=== PATIENT | male | born 1955 | race Hispanic/Latino ===

== ENCOUNTER 2017-03-11 20:08 | Inpatient (IN) | payer MEDICARE ==
[2017-03-11] MEDS ORDERED: MORPHINE IV ONE (20:36)
[2017-03-11 20:57] LABS: Basophils % (Auto) 0.4 % (0.0-1.8); Eosinophils % (Auto) 1.8 % (0.0-4.3); Hemoglobin 13.9 gm/dl (11.8-15.2); Mean Corpuscular HGB Conc 33 % (32-34); Mean Corpuscular Hemoglobin 29 pg (28-32); Mean Corpuscular Volume 88 fl (84-94); Platelet Count 111 K/mm3 (140-440); Red Blood Count 4.76 M/mm3 (3.65-5.03); Red Cell Distribution Width 16.8 % (13.2-15.2); White Blood Count 6.6 K/mm3 (4.5-11.0)
[2017-03-11 21:20] LABS: Alanine Aminotransferase 39 units/L (7-56); Albumin 4.2 g/dL (3.9-5); Albumin/Globulin Ratio 1.4 %; Alkaline Phosphatase 74 units/L (35-129); Anion Gap 19 mmol/L; BUN/Creatinine Ratio 21.42; Blood Urea Nitrogen 15 mg/dL (9-20); Calcium 8.6 mg/dL (8.4-10.2); Carbon Dioxide 21 mmol/L (22-30); Chloride 101.3 mmol/L (98-107); Glucose 119 mg/dL (75-100); Potassium 4.1 mmol/L (3.6-5.0); Sodium 137 mmol/L (137-145); Total Protein 7.1 g/dL (6.3-8.2)
--- NOTE | 2017-03-11 21:24 | Emergency Department Report ---
ED Chest Pain HPI - General Chief Complaint: Chest Pain Stated Complaint: POSS STEMI Time Seen by Provider: 03/11/17 20:12 Source: patient, family, EMS Mode of arrival: Stretcher Limitations: No Limitations - History of Present Illness Initial Comments: Patient is a 61-year-old male who presents with severe chest pain. Chest pain started 45 minutes ago. He states the pain is a 10 out of 10 located in the left side of his chest. He has a sharp pain that radiates to his left shoulder. He states that nothing makes it better and nothing makes the pain worse. Patient has a history of PR and high blood pressure he states he was at rest doing his activities of daily living one this severe chest pain started. He states this chest pain is similar to the chest pain he had when he had a heart attack. Patient is also short of breath symptoms are moderate. Severity scale (0 -10): 10 - Related Data Home Medications Medication Instructions Recorded Confirmed Last Taken Aspirin 81 mg PO QDAY 03/11/17 03/11/17 03/11/17 HYDROcodone/ACETAMINOPHEN [Xodol 1 each PO TID 03/11/17 03/11/17 03/11/17 5-300 Tablet] Metoprolol Tartrate 25 mg PO BID 03/11/17 03/11/17 03/11/17 Pantoprazole Sodium 40 mg PO QDAY 03/11/17 03/11/17 03/11/17 Previous Rx's Medication Instructions Recorded Last Taken Type Ezetimibe [Zetia] 10 mg PO QDAY #30 tablet 10/29/16 03/11/17 Rx Allergies Allergy/AdvReac Type Severity Reaction Status Date / Time albuterol AdvReac Unknown Verified 10/25/16 21:32 Heart Score - HEART Score History: Moderately suspicious EKG: Non-specific Age: 45-65 Risk factors: > 3 risk factors or hx of atherosclerotic disease Troponin: < normal limit HEART Score: 5 ED Review of Systems ROS: Stated complaint: POSS STEMI Other details as noted in HPI Constitutional: denies: chills, fever Eyes: denies: eye pain, eye discharge, vision change ENT: denies: ear pain, throat pain Respiratory: shortness of breath. denies: cough, wheezing Cardiovascular: chest pain. denies: palpitations Endocrine: no symptoms reported Gastrointestinal: denies: abdominal pain, nausea, diarrhea Genitourinary: denies: urgency, dysuria Musculoskeletal: denies: back pain, joint swelling, arthralgia Skin: denies: rash, lesions Neurological: denies: headache, weakness, paresthesias Psychiatric: denies: anxiety, depression Hematological/Lymphatic: denies: easy bleeding, easy bruising ED Past Medical Hx - Past Medical History Hx Hypertension: Yes Hx Heart Attack/AMI: Yes Hx Asthma: Yes - Surgical History Hx Coronary Stent: Yes (x 3) Additional Surgical History: ORIF left femur, skin grafts to bilateral feet - Social History Smoking Status: Never Smoker Substance Use Type: Marijuana - Medications Home Medications: Home Medications Medication Instructions Recorded Confirmed Last Taken Type Ezetimibe [Zetia] 10 mg PO QDAY #30 tablet 10/29/16 03/11/17 03/11/17 Rx Aspirin 81 mg PO QDAY 03/11/17 03/11/17 03/11/17 History HYDROcodone/ACETAMINOPHEN [Xodol 1 each PO TID 03/11/17 03/11/17 03/11/17 History 5-300 Tablet] Metoprolol Tartrate 25 mg PO BID 03/11/17 03/11/17 03/11/17 History Pantoprazole Sodium 40 mg PO QDAY 03/11/17 03/11/17 03/11/17 History ED Physical Exam - General Limitations: No Limitations General appearance: in distress - Head Head exam: Present: atraumatic, normocephalic - Eye Eye exam: Present: normal appearance - ENT ENT exam: Present: mucous membranes moist - Neck Neck exam: Present: normal inspection - Respiratory Respiratory exam: Present: normal lung sounds bilaterally. Absent: respiratory distress - Cardiovascular Cardiovascular Exam: Present: regular rate, normal rhythm. Absent: systolic murmur, diastolic murmur, rubs, gallop - GI/Abdominal GI/Abdominal exam: Present: soft, normal bowel sounds - Rectal Rectal exam: Present: deferred - Extremities Exam Extremities exam: Present: normal inspection - Back Exam Back exam: Present: normal inspection - Neurological Exam Neurological exam: Present: alert, oriented X3, CN II-XII intact - Psychiatric Psychiatric exam: Present: normal affect, normal mood - Skin Skin exam: Present: warm, dry, intact, normal color. Absent: rash ED Course Vital Signs 03/11/17 03/11/17 03/11/17 20:00 20:10 20:18 Temperature 98.3 F Pulse Rate 107 H 81 87 Respiratory 21 15 16 Rate Blood Pressure 205/140 163/102 Blood Pressure 163/102 [Right] O2 Sat by Pulse 100 100 Oximetry 03/11/17 03/11/17 03/11/17 20:21 20:31 20:41 Temperature Pulse Rate 85 90 71 Respiratory 17 23 16 Rate Blood Pressure 176/106 176/106 Blood Pressure [Right] O2 Sat by Pulse 99 96 99 Oximetry 03/11/17 03/11/17 03/11/17 20:51 21:00 21:07 Temperature Pulse Rate 72 68 Respiratory 25 H 15 Rate Blood Pressure 131/82 135/82 Blood Pressure [Right] O2 Sat by Pulse 98 95 100 Oximetry 03/11/17 03/11/17 03/11/17 21:11 21:21 21:30 Temperature Pulse Rate 70 67 Respiratory 13 14 Rate Blood Pressure 135/82 130/85 148/85 Blood Pressure [Right] O2 Sat by Pulse 98 97 Oximetry 03/11/17 03/11/17 03/11/17 21:50 22:00 22:10 Temperature Pulse Rate 103 H 85 84 Respiratory 24 17 17 Rate Blood Pressure 148/85 148/85 Blood Pressure [Right] O2 Sat by Pulse 98 98 98 Oximetry 03/11/17 03/11/17 03/11/17 22:20 22:30 22:40 Temperature Pulse Rate 82 84 110 H Respiratory 15 13 28 H Rate Blood Pressure 148/85 148/85 148/85 Blood Pressure [Right] O2 Sat by Pulse 96 97 96 Oximetry 03/11/17 03/11/17 03/11/17 22:50 23:00 23:10 Temperature Pulse Rate 93 H 93 H 94 H Respiratory 15 10 L 12 Rate Blood Pressure 148/85 148/85 148/85 Blood Pressure [Right] O2 Sat by Pulse 97 96 97 Oximetry 03/11/17 03/11/17 23:20 23:30 Temperature Pulse Rate 84 87 Respiratory 13 14 Rate Blood Pressure 148/85 148/85 Blood Pressure [Right] O2 Sat by Pulse 97 97 Oximetry - Reevaluation(s) Reevaluation #1: 03/11/17 21:25 Patient states that his pain is better. Discussed that I will admit patient to the hospital he agrees with the plan. Reevaluation #2: 03/12/17 00:11 patient is felling better i will admit patient case discussed with hospitalist BRANDO score - Brando Score Age > 65: (0) No Aspirin use within the Past 7 Days: (0) No 3 or more CAD Risk Factors: (1) Yes 2 or more Angina events in past 24 hrs: (1) Yes Known CAD with more than 50% Stenosis: (1) Yes Elevated Cardiac Markers: (0) No ST Deviation Greater than 0.5mm: (0) No BRANDO Score: 3 ED Medical Decision Making - Lab Data Result diagrams: 03/11/17 20:41 03/11/17 20:41 Lab Results 03/11/17 03/11/17 03/11/17 Range/Units 20:41 20:41 20:41 WBC 6.6 (4.5-11.0) K/mm3 RBC 4.76 (3.65-5.03) M/mm3 Hgb 13.9 (11.8-15.2) gm/dl Hct 42.0 (35.5-45.6) % MCV 88 (84-94) fl MCH 29 (28-32) pg MCHC 33 (32-34) % RDW 16.8 H (13.2-15.2) % Plt Count 111 L (140-440) K/mm3 Lymph % (Auto) 26.5 (13.4-35.0) % [place] % (Auto) 9.7 H (0.0-7.3) % Eos % (Auto) 1.8 (0.0-4.3) % Baso % (Auto) 0.4 (0.0-1.8) % Lymph # 1.7 (1.2-5.4) K/mm3 [place] # 0.6 (0.0-0.8) K/mm3 Eos # 0.1 (0.0-0.4) K/mm3 Baso # 0.0 (0.0-0.1) K/mm3 Seg Neutrophils % 61.6 (40.0-70.0) % Seg Neutrophils # 4.0 (1.8-7.7) K/mm3 Sodium 137 (137-145) mmol/L Potassium 4.1 (3.6-5.0) mmol/L Chloride 101.3 (98-107) mmol/L Carbon Dioxide 21 L (22-30) mmol/L Anion Gap 19 mmol/L BUN 15 (9-20) mg/dL Creatinine 0.7 L (0.8-1.5) mg/dL Estimated GFR > 60 ml/min BUN/Creatinine Ratio 21.42 % Glucose 119 H (75-100) mg/dL Calcium 8.6 (8.4-10.2) mg/dL Total Bilirubin 0.30 (0.1-1.2) mg/dL AST 30 (5-40) units/L ALT 39 (7-56) units/L Alkaline Phosphatase 74 (35-129) units/L Troponin T < 0.010 (0.00-0.029) ng/mL NT-Pro-B Natriuret Pep 112.3 (0-900) pg/mL Total Protein 7.1 (6.3-8.2) g/dL Albumin 4.2 (3.9-5) g/dL Albumin/Globulin Ratio 1.4 % - EKG Data -: EKG Interpreted by Sc - EKG Data 03/11/17 21:26 EKG shows normal sinus rhythm nonspecific ST and T-wave abnormality and prolonged QT. - Radiology Data Radiology results: report reviewed, image reviewed Chest x-ray shows: Cardiomegaly CT angio chest: Shows no dissection CT angio abdomen pelvis: shows no dissection - Medical Decision Making Chief medical diagnosis: Non-STEMI Differential medical diagnosis: Aortic dissection, unstable angina, pneumonia and pneumothorax CBC, CMP, troponin, chest x-ray, IV morphine, CT angiogram chest Due to patient's severe symptoms he will be admitted. Critical care attestation.: If time is entered above; I have spent that time in minutes in the direct care of this critically ill patient, excluding procedure time. ED Disposition Clinical Impression: Chest pain Qualifiers: Chest pain type: unspecified Qualified Code(s): R07.9 - Chest pain, unspecified Disposition: -09 OP ADMIT IP TO THIS HOSP Is pt being admited?: Yes Does the pt Need Aspirin: No Condition: Stable Instructions: Chest Pain (ED) Referrals: PRIMARY CARE, [Referring] - 3-5 Days
[2017-03-11] MEDS ORDERED: NACL ONE (21:34)
[2017-03-11] MEDS ORDERED: DILAUDID IV ONE (21:58)
[2017-03-11] MEDS ORDERED: ZOFRAN ONE (22:41)
[2017-03-11] MEDS ORDERED: ZOFRAN IV ONE (22:44)
--- NOTE | 2017-03-11 22:52 | Cat Scan Report ---
FINAL REPORT EXAM: CT ANGIO ABDOMEN PELVIS HISTORY: concern for dissection TECHNIQUE: Standard enhanced CT of the abdomen and pelvis. Coronal and sagittal reconstruction was also performed. Contrast: 100 mL Omnipaque 350 given IV. PRIORS: CT a/P 10/26/2016 FINDINGS: The aorta is normal in caliber without evidence for dissection or aneurysm. Mild atherosclerotic changes in calcification are present in the distal abdominal aorta. Within the abdomen, the liver has a lobulated contour suggesting cirrhosis. There is elevation of the right hemidiaphragm. The spleen, pancreas, gallbladder, adrenal glands, and kidneys are unremarkable. No evidence for retroperitoneal or pelvic lymphadenopathy is seen. The bowel loops have normal caliber. No soft tissue mass, fluid collection, inflammatory change, or free air is seen within the abdomen or pelvis. The appendix is normal. Within the pelvis, the bladder is unremarkable. The prostate is normal. No evidence for mass or lymphadenopathy is seen in the pelvis. Bony structures show intramedullary marky in the proximal left femur. A metallic focus is also seen in the overlying lateral soft tissues of the left hip. IMPRESSION: 1. No evidence for aortic dissection or aneurysm. Mild atherosclerotic changes in the distal abdominal aorta are noted. 2. The liver has a lobulated contour suggesting cirrhosis. 3. Elevation the right hemidiaphragm
--- NOTE | 2017-03-11 23:03 | Cat Scan Report ---
FINAL REPORT EXAM: CT ANGIO CHEST HISTORY: concern for dissection TECHNIQUE: CT angiogram of the chest was imaged at 2.5 mm axial increments through the chest. Imaging also continued into the abdomen and pelvis (which was dictated separately). Sagittal and coronal reconstructions were obtained. Post processing oblique coronal images were produced by a senior technologist. Contrast: 100 cc Omnipaque 350 given IV PRIORS: CTA a/P 03/11/2017 FINDINGS: Aorta: The thoracic aorta shows mild ectasia of the ascending component measuring 4.8 x 4.6 cm in diameter. No evidence for dissection or tear is seen. No extravasation of contrast is noted. The aortic arch and descending thoracic aorta are normal in caliber. Pulmonary arteries and veins: Pulmonary arteries and veins appear normal. Mediastinum: No evidence for mediastinal hematoma is seen. Major arteries extending off the arch of the aorta superiorly are normal without evidence for dissection or tear. The venous structures in the upper mediastinum are also intact. Lung parenchyma: There is a fine reticular nodular pattern throughout both lungs which may be chronic. There is no evidence for pneumothorax, parenchymal infiltrate, or pleural effusion. Chest wall: No pleural abnormality is identified. Bony structures: No evidence for fracture is seen. abdomen structures: The visualized upper abdominal viscera demonstrate nodularity of the liver which can be seen with cirrhosis. The abdominal aorta is intact without evidence for dissection, aneurysm, or tear. Mild atherosclerotic changes in the distal abdominal aorta are noted. IMPRESSION: 1. ascending aortic ectasia. There is no evidence for aortic dissection, aortic tear, or mediastinal hematoma. 2. Diffuse reticular nodular pattern throughout the lungs which is probably chronic 3. Nodular contour of the liver suspicious for cirrhosis.
[2017-03-12] MEDS ORDERED: DULCOLAX PR PRN (00:49)
[2017-03-12] MEDS ORDERED: MILK OF MAGNESIA PO PRN (00:49)
[2017-03-12] MEDS ORDERED: TYLENOL PO PRN (00:49)
--- NOTE | 2017-03-12 00:54 | History and Physical Report ---
History of Present Illness Date of examination: 03/12/17 History of present illness: 61-year-old man with a history of hypertension, coronary artery disease, asthma comes emergency room with complaints of chest pain that started today. Pain is in the epigastric area which she describes as a sharp pain, intermittent in nature lasting 5 minutes, intensity8/10, radiating to the left shoulder and left arm, no relief with nitroglycerin. He admits to nausea vomiting, shortness of breath, diaphoresis and palpitation Review Of Systems: Constitutional: no fever, chills, weight loss Ears, eyes, nose, mouth and throat: no nasal congestion, no nasal discharge, no sinus pressure, blurry vision, diplopia Neck: No neck pain or rigidity. Cardiovascular: orthopnea Respiratory: No cough Gastrointestinal: abdominal pain, hematochezia Genitourinary : no dysuria, frequency , hematuria Musculoskeletal: no joint swelling or muscle ache Integumentary: no rash, no pruritis Neurological: no parathesias, focal weakness Endocrine: no cold or heat intolerance, no polyuria or polydipsia Hematologic/Lymphatic: no easy bruising, no easy bleeding, no gland swelling Allergic/Immunologic: no urticaria, no angioedema. PAST MEDICAL HISTORY:hypertension, coronary artery disease, asthma PAST SURGICAL HISTORY: ORIF, skin graft FAMILY HISTORY: Hypertension SOCIAL HISTORY: Smoke marijuana, positive alcohol use, no tobacco use Medications and Allergies Allergies Allergy/AdvReac Type Severity Reaction Status Date / Time albuterol AdvReac Unknown Verified 10/25/16 21:32 Home Medications Medication Instructions Recorded Confirmed Last Taken Type Acetaminophen [Acetaminophen TAB] 650 mg PO Q4H PRN #30 tablet 03/12/17 Unknown Rx Aspirin [Aspirin BABY CHEW TAB] 81 mg PO QDAY tab.chew 03/12/17 Unknown Rx Bisacodyl [Dulcolax suppos] 10 mg [place] QDAY PRN #30 supp.rect 03/12/17 Unknown Rx Ezetimibe [Zetia] 10 mg PO QDAY tablet 03/12/17 Unknown Rx Magnesium Hydroxide [Milk of 30 ml PO Q4H PRN #30 oral.liqd 03/12/17 Unknown Rx Magnesia] Metoprolol [Lopressor TAB] 25 mg PO BID tablet 03/12/17 Unknown Rx Ondansetron [Zofran INJ] 4 mg IV Q8H PRN #30 vial 03/12/17 Unknown Rx Pantoprazole [Protonix TAB] 40 mg PO QDAY tablet 03/12/17 Unknown Rx Active Meds: Active Medications Acetaminophen (Tylenol) 650 mg PO Q4H PRN PRN Reason: Pain MILD(1-3)/Fever >100.5/ST Aspirin (Baby Aspirin) 81 mg PO QDAY [facility] Bisacodyl (Dulcolax) 10 mg [place] QDAY PRN PRN Reason: Constipation unrelieved by MOM Ezetimibe (Zetia) 10 mg PO QDAY [facility] Enoxaparin Sodium (Lovenox) 30 mg SUB-Q QDAY [facility] Magnesium Hydroxide (Milk Of Magnesia) 30 ml PO Q4H PRN PRN Reason: Constipation Miscellaneous Medication (Metoprolol Tartrate [Metoprolol Tartrate]) 25 mg PO BID [facility] Morphine Sulfate (Morphine) 2 mg IV Q4H PRN PRN Reason: Pain, Moderate (4-6) Ondansetron HCl (Zofran) 4 mg IV Q8H PRN PRN Reason: N/V unrelieved by Reglan Pantoprazole Sodium (Protonix) 40 mg PO QDAY [facility] Exam - Physical Exam Narrative exam: Gen. appearance: Patient lying in bed, no apparent distress HEENT: Normocephalic, atraumatic, pupils equally round and reactive to light, extraocular movement intact, and no sclericterus,. No JVD or thyromegaly or nodule,neck supple, no carotid bruit ,mucous membranes moist, no exudate or erythema Heart: S1, S2, regular rate and rhythm Lungs: Clear to auscultation bilaterally, breathing comfortable Abdomen: Positive bowel sounds, nontender, nondistended, no organomegaly Extremity: No edema, cyanosis, clubbing Skin: No rash, nodules, warm, dry Neuro: Oriented 3, cranial nerves II-12 intact, speech is fluent, motor and sensory intact - Constitutional Vitals: Temp Pulse Resp BP Pulse Ox 98.3 F 81 13 159/90 93 03/11/17 20:18 03/12/17 00:30 03/12/17 00:30 03/12/17 00:30 03/12/17 00:30 Results - Labs CBC & Chem 7: 03/12/17 12:15 03/11/17 20:41 Labs: Abnormal lab results 03/11/17 03/11/17 03/11/17 Range/Units 20:41 20:41 23:24 RDW 16.8 H (13.2-15.2) % Plt Count 111 L (140-440) K/mm3 [place] % (Auto) 9.7 H (0.0-7.3) % Carbon Dioxide 21 L (22-30) mmol/L Creatinine 0.7 L (0.8-1.5) mg/dL Glucose 119 H (75-100) mg/dL Troponin T 0.064 H D (0.00-0.029) ng/mL - Imaging and Cardiology EKG: image reviewed Chest x-ray: image reviewed Assessment and Plan Assessment Unstable angina Coronary artery disease thrombocytopenia Asthma Plan Admit to medicine Check cardiac enzymes, consult cardiology Start aspirin, IV morphine and of the outpatient medications
[2017-03-12] MEDS: MORPHINE IV PRN ×3 (03:29→15:25)
[2017-03-12] MEDS ORDERED: LOPRESSOR PO ONE (03:50)
[2017-03-12] MEDS: ZOFRAN IV PRN ×2 (04:53→11:24)
--- NOTE | 2017-03-12 07:22 | XRay Report ---
AP CHEST: HISTORY: chest pain There is poor inspiration. AP view of the chest demonstrates a normal mediastinal and cardiac contour with clear lungs and normal bony and soft tissue structures. IMPRESSION: Unremarkable AP chest.
[2017-03-12] MEDS ORDERED: HEPARIN/NS 5000 UNIT/500ML(CATH LAB) 1,000 ML IR ONE (09:47)
[2017-03-12] MEDS ORDERED: HEPARIN 10,000 UNITS/10 ML ONE (09:47)
[2017-03-12] MEDS ORDERED: XYLOCAINE 2% INFILTRATI ONE (09:48)
[2017-03-12] MEDS ORDERED: CALAN ONE (09:48)
[2017-03-12] MEDS ORDERED: NITROGLYCERIN SYRINGE 3 ML ONE (09:48)
[2017-03-12] MEDS ORDERED: VERSED ONE (09:48)
[2017-03-12] MEDS ORDERED: SUBLIMAZE ONE (09:48)
[2017-03-12] MEDS ORDERED: NACL 0.9% 500 ML 500 ML ONE (09:50)
[2017-03-12] MEDS ORDERED: ZETIA PO SCH (10:00)
[2017-03-12] MEDS ORDERED: PROTONIX PO SCH (10:00)
[2017-03-12] MEDS ORDERED: LOVENOX SUB-Q SCH (10:00)
[2017-03-12] MEDS ORDERED: LOPRESSOR PO SCH (10:00)
[2017-03-12] MEDS ORDERED: BABY ASPIRIN PO SCH (10:00)
[2017-03-12] MEDS ORDERED: TRIDIL DRIP 50MG/250ML 50 MG/250 ML BOTTLE ONE (10:24)
[2017-03-12 10:28] LABS: INR 1.06 (0.87-1.13)
[2017-03-12] MEDS ORDERED: MORPHINE ONE ×2 (11:16→15:22)
[2017-03-12] MEDS ORDERED: ZOFRAN ONE (11:20)
--- NOTE | 2017-03-12 11:23 | Consultation ---
History of Present Illness Consult date: 03/12/17 Consult reason: chest pain History of present illness: 61 year old gentleman presenting with worsening chest pain at rest. PMHx is pertinent for hypertension, CAD s/p multiple PCIs. He was lost to follow-up the last 3 years. He takes asa but last time he took plavix was 3 years ago. He is describing a 5/10 retrosternal chest pain, associated with nausea and clamminess. He has been vomiting. ECG on admission is showing ischemic AT-T wave abnormalities especially in the lateral leads. Troponin is positive ruling him in for a NSTEMI. Past History Past Medical History: CAD, hypertension, hyperlipidemia, liver disease Past Surgical History: Other (ORIF, skin graft) Social history: other (smoke marijuana, occasional alcohol use) Family history: hypertension Medications and Allergies Allergies Allergy/AdvReac Type Severity Reaction Status Date / Time albuterol AdvReac Unknown Verified 10/25/16 21:32 Home Medications Medication Instructions Recorded Confirmed Last Taken Type Ezetimibe [Zetia] 10 mg PO QDAY #30 tablet 10/29/16 03/11/17 03/11/17 Rx Aspirin 81 mg PO QDAY 03/11/17 03/11/17 03/11/17 History HYDROcodone/ACETAMINOPHEN [Xodol 1 each PO TID 03/11/17 03/11/17 03/11/17 History 5-300 Tablet] Metoprolol Tartrate 25 mg PO BID 03/11/17 03/11/17 03/11/17 History Pantoprazole Sodium 40 mg PO QDAY 03/11/17 03/11/17 03/11/17 History Active Meds: Active Medications Acetaminophen (Tylenol) 650 mg PO Q4H PRN PRN Reason: Pain MILD(1-3)/Fever >100.5/ST Aspirin (Baby Aspirin) 81 mg PO QDAY [facility] Bisacodyl (Dulcolax) 10 mg [place] QDAY PRN PRN Reason: Constipation unrelieved by MOM Ezetimibe (Zetia) 10 mg PO QDAY [facility] Heparin Sodium/Sodium Chloride (Heparin/ 0.45% Nacl-25,000 Unit/500 Ml) 500 mls @ 27.75 mls/hr IV TITRATE SHADE; 15 UNITS/KG/HR PRN Reason: Protocol Sodium Chloride (Nacl 0.9% 1000 Ml) 1,000 mls @ 75 mls/hr IV DIRECT [facility]ADE Magnesium Hydroxide (Milk Of Magnesia) 30 ml PO Q4H PRN PRN Reason: Constipation Metoprolol Tartrate (Lopressor) 25 mg PO BID [facility] Morphine Sulfate (Morphine) 2 mg IV Q4H PRN PRN Reason: Pain, Moderate (4-6) Last Admin: 03/12/17 03:29 Dose: 2 mg Ondansetron HCl (Zofran) 4 mg IV Q8H PRN PRN Reason: N/V unrelieved by Reglan Last Admin: 03/12/17 04:53 Dose: 4 mg Pantoprazole Sodium (Protonix) 40 mg PO QDAY [facility] Review of Systems All systems: negative Physical Examination Vital Signs Pulse Resp 107 H 21 03/11/17 20:00 03/11/17 20:00 General appearance: no acute distress HEENT: Positive: PERRL Neck: Positive: neck supple Cardiac: Positive: Reg Rate and Rhythm Lungs: Positive: Normal Exam Neuro: Positive: Grossly Intact Abdomen: Positive: Soft Extremities: Absent: edema Results 03/11/17 20:41 03/11/17 20:41 Coagulation 03/12/17 Range/Units 10:05 PT 13.7 (12.2-14.9) Sec. INR 1.06 (0.87-1.13) - EKG Interpretation EKG: sinus rhythm Assessment and Plan 1. NSTEMI with active chest pain Cath - severe calcified triple vessel disease (ostial - proximal LAD, proximal Cx, ostial, mid RCA and ostial PDA) Normal LVEF 2. Systemic Hypertension 3. Hyperlipidemia Recommendations: Transfer to [place] for CABG (Discussed with Dr Mercado) IV nitroglycerin for chest pain and blood pressure control IV heparin (to be started 2 hours after radial sheath removal)
--- NOTE | 2017-03-12 11:44 | Discharge Summary ---
Providers - Providers Date of Admission: 03/12/17 00:49 Date of discharge: 03/12/17 Attending physician: MEE OTT 03/12/17 11:15 Consult to Cardiac Rehabilitation [CONS] Routine Reason For Exam: Cardiac Rehab Evaluation Primary care physician: WILL MIGUEL Hospitalization Reason for admission: cp Condition: Stable Hospital course: This is a 61-year-old male with past medical history for asthma, hypertension and CAD status post multiple PCIs who presented through the emergency department with chief complaint of chest pain. She reportedly was lost to follow-up over the last 3 years. Patient states that he takes aspirin but last time he took Plavix was approximately 3 years ago. Patient described 5/10 retrosternal chest pain associated with nausea and clamminess. Patient also reports vomiting. ECG on admission is showing ischemic AT-T wave abnormalities especially in the lateral leads. Patient also had positive troponin and was diagnosed with NSTEMI. Patient was seen by cardiology and underwent cardiac catheterization which revealed severe calcified triple vessel disease (ostial - proximal LAD, proximal Cx, ostial, mid RCA and ostial PDA, Normal LVEF. Cardiology recommends transfer to [place] for CABG with Dr. Juan Antonio Mathur. Patient will be discharged with IV nitroglycerin, continued blood pressure control and IV heparin. Dedicated discharge time 35 minutes. Disposition: DC/TX-70 ANOTHER TYPE THCARE Time spent for discharge: 35 - Discharge Diagnoses (1) NSTEMI (non-ST elevated myocardial infarction) Status: Acute (2) Chest pain Status: Acute Qualifiers: Chest pain type: unspecified Ischemic chest pain type: I Qualified Code(s ): R07.9 - Chest pain, unspecified (3) Accelerated hypertension Status: Acute (4) CAD (coronary artery disease) Status: Chronic Qualifiers: Coronary Disease-Associated Artery/Lesion type: C [place] vs. transplanted heart: N Associated angina: A Core Measure Documentation - Palliative Care Palliative Care/ Comfort Measures: Not Applicable - Core Measures Any of the following diagnoses?: acute KS - Acute KS Discharge Requirements Aspirin at discharge: Yes ROSEANN/ARB for LVSD if EF <40%: No Reason for no ROSEANN/ARB: Hypotension Beta krissy at discharge: Yes Statin for LDL = or >100 mg/dl on DC: Yes Exam - Constitutional Vitals: Temp Pulse Resp BP Pulse Ox 97.4 F L 77 16 118/81 95 03/12/17 07:59 03/12/17 11:15 03/12/17 11:15 03/12/17 11:15 03/12/17 11:15 General appearance: Present: no acute distress, well-nourished - EENT Eyes: Present: PERRL ENT: hearing intact, clear oral mucosa - Neck Neck: Present: supple, normal ROM - Respiratory Respiratory effort: normal Respiratory: bilateral: CTA - Cardiovascular Heart Sounds: Present: S1 & S2. Absent: rub, click - Extremities Extremities: pulses symmetrical, No edema Peripheral Pulses: within normal limits - Abdominal General gastrointestinal: Present: soft, non-tender, non-distended, normal bowel sounds Male genitourinary: Present: normal - Integumentary Integumentary: Present: clear, warm, dry - Musculoskeletal Musculoskeletal: gait normal, strength equal bilaterally - Psychiatric Psychiatric: appropriate mood/affect, intact judgment & insight - Neurologic Neurologic: CNII-XII intact, moves all extremities Plan Activity: advance as tolerated Weight Bearing Status: Weight Bear as Tolerated Diet: other (per Dr. Dagoberto Mathur) Additional Instructions: Cont with IV heparin drip and IV Nitroglycerin drip Follow up with: PRIMARY CARE, [Referring] - 3-5 Days
--- NOTE | 2017-03-12 11:51 | Cardiac Catherization Report ---
INDICATION FOR PROCEDURE: Non-ST elevation myocardial infarction. PROCEDURES PERFORMED: 1. Selective left and right coronary angiography. 2. Left ventriculography. DESCRIPTION OF PROCEDURE: After obtaining written consent, the patient was draped using sterile technique. A 2% lidocaine was injected into the right wrist. A 6-Tongan vascular sheath was inserted into the right radial artery. A 6-Tongan [place] and multipurpose catheter were used to selectively engage the left coronary artery. A 6-Tongan multipurpose and 3RC catheter were used to selectively engage the right coronary artery. A 6-Tongan [place] catheter was used to hand inject the left ventriculogram. No complications occurred during the procedure. Hemostasis was achieved at the end of the procedure using manual pressure. No complications occurred. ESTIMATED BLOOD LOSS: Minimal. SPECIMEN REMOVED: None. Total contrast used was 240 mL. FINDINGS: HEMODYNAMICS: Aortic pressure 166/94, LV systolic pressure 166 mmHg, LV end-diastolic pressure of 33 mmHg. There was no gradient across the left ventricular outflow tract. CARDIAC STRUCTURES: Left ventricle is normal in size and systolic function and left ventricular ejection fraction is estimated at 55%. CORONARY ANATOMY: 1. This is a right dominant circulation. 2. The left main exhibits evidence of scattered to moderate diffuse disease. 3. The LAD has evidence of a subtotal occlusion with 99% luminal obstruction in the proximal LAD extending into the ostium of the distal left main. There is a 99% stenosis of the first septal senior security analyst. Distal to this occlusion, there is a patent stent noted in the mid LAD between the first and second diagonal artery. The first diagonal artery is a moderate-sized caliber vessel. The second diagonal artery is also a moderate-sized caliber vessel. The ostium of the second diagonal artery appears to be jailed by the mid LAD stent. Distal to the mid LAD stent, the mid to distal segment has evidence of a 70-80% tubular stenosis. The LAD distally is a moderate-sized caliber vessel that is a good target for bypass grafting. 4. The left circumflex artery has evidence of a 70% proximal stenosis. There is evidence of a patent stent noted in the proximal segment of the first obtuse marginal. Proximal to the stent, there is a hazy probably 40-50% luminal obstruction. 5. The right coronary artery is heavily calcified. There is evidence of an 80% ostial stenosis of the right coronary artery. This is followed by another 80% focal stenosis of the mid right coronary artery. There is also an ostial stenosis of the large-caliber PDA involving 80% of lumen. IMPRESSION: 1. Calcified coronary artery with severe triple-vessel disease. 2. 99% ostial proximal LAD extending into the distal left main, 70-80% mid LAD, 70% proximal circumflex, 80% ostial right coronary artery, 80% mid right coronary artery and 80% ostial PDA. 3. Normal left ventricular size and systolic function. 4. LVEDP measured at 33 mmHg. RECOMMENDATIONS: The patient will be recommended for a coronary artery bypass grafting evaluation. He will be transferred to [facility] for further evaluation. JOB# [id number] MK/ANTHONY
[2017-03-12] MEDS ORDERED: TRIDIL DRIP 50MG/250ML 50 MG/250 ML BOTTLE IV SCH (12:00)
[2017-03-12] MEDS ORDERED: HEPARIN/ 0.45% NACL-25,000 UNIT/500 ML 25,000 UNIT/500 ML BAG IV SCH (12:00)
[2017-03-12] MEDS ORDERED: NACL 0.9% 1000 ML 1,000 ML IV SCH (12:00)
[2017-03-12 12:41] LABS: Hemoglobin 13.9 gm/dl (11.8-15.2)
[2017-03-12] MEDS ORDERED: HEPARIN/ 0.45% NACL-25,000 UNIT/500 ML 25,000 UNIT/500 ML BAG ONE (12:45)
[2017-03-12 12:56] LABS: INR 1.1 (0.87-1.13)
[2017-03-12 12:57] LABS: Partial Thromboplastin Time 30.6 Sec. (24.2-36.6)
[2017-03-12] MEDS ORDERED: REGLAN ONE (13:05)
[2017-03-12] MEDS ORDERED: REGLAN IV ONE (13:10)
--- NOTE | 2017-03-12 15:51 | Admit Criteria Form ---
Admission Criteria Documentation: TELEMETRY CARE Telemetry Admission Guidelines (Place 'X' for any and all applicable criteria): Admission to telemetry [A] may be indicated for ANY ONE of the following(1)(2)(3 )(4)(5): [X ]I. Cardiac disease, including ANY ONE of the following (9)(10)(11)(12)( 13): [ ]a) Postacute NC [ ]b) Low-risk patients with ST-segment elevation NC who have undergone successful percutaneous coronary intervention [X ]c) Unstable angina [ ]d) Suspected NC (until it is ruled out) [ ]e) Post cardiac surgery (first 48 to 72 hours unless complications occur) [ ]f) Acute arrhythmias (including significant tachycardia or bradycardia) [B] [ ]g) Firing of an implantable cardioverter defibrillator [C] [ ]h) Suspected pacemaker or implantable cardioverter defibrillator malfunction (10) [ ]i) New administration or adjustment of an antiarrhythmic drug [D ] [ ]j) Child admitted for acute congestive heart failure [ ]j) Long QT syndrome [ ]k) Advanced heart block (eg, second-degree Mobitz type II, third- degree heart block) [ ]l) Acute myocarditis or pericarditis [ ]m) Short-term (ambulatory or inpatient) monitoring after a cardiac procedure as indicated by ANY ONE of the following [E]: [ ]i) Electrophysiologic studies [ ]ii) Percutaneous coronary intervention with stent placement [ ]iii) Pacemaker placement with cardiac conduction defect [ ]iv) Implantable cardiac defibrillator placement [ ]II. Drug overdose or poisoning with substance that causes arrhythmias or QT prolongation (eg, phenothiazines, sympathomimetic agents, cyclic antidepressants, digitalis, antiarrhythmic drugs)(15) [ ]III. Short-term (ambulatory or inpatient) monitoring after therapeutic or diagnostic procedure requiring conscious sedation or anesthesia (eg, endoscopy, elective cardioversion) [ ]IV. Acute cerebrovascular even[F](18) [ ]V. Massive blood transfusion (eg, at least 10 units of packed red blood cells in 24 hours) [ ]. Variceal bleeding after endoscopy, sclerotherapy, or IV vasopressin [ ]VII. Uncorrected electrolyte abnormalities associated with an increased risk of dangerous arrhythmia [G]; examples include [ ]a) Hyperkalemia with attributable ECG changes [ ]b) Potassium greater than 6.5 mmol/L (mEq/L) in a patient without history of chronic renal disease [ ]c) Prolonged QT attributed to hypokalemia, hypomagnesemia, or hypocalcemia [ ]VIII.Unexplained syncope or other neurologic event suspected of being due to arrhythmia due to a finding that increases risk; examples include(19)(20)(21): [ ]a) High-risk ECG findings (eg, bifascicular block, bradycardia, abnormal QT interval, ventricular pre- excitation) [ ]b) History of previous syncope due to arrhythmia [ ]c) Abnormal ventricular function (eg, reduced ejection fraction ) [ ]d) Exertional or supine syncope [ ]e) Concerning syncope characteristics (eg, sudden loss of consciousness without prodrome) [ ]f) Family history of sudden [ ]g) Use of arrhythmogenic medication [ ]h) Suspected cardiac ischemia [ ]i) Known channelopathy (eg, long QT syndrome, Brugada syndrome, or catecholaminergic paroxysmal ventricular tachycardia) [ ]j) Known structural heart disease (eg, hypertrophic cardiomyopathy , severe valvular disease) [ ]k) Palpitations preceding syncope The original [employer] content created by [employer] has been revised. The portions of the content which have been revised are identified through the use of italic text or in bold, and [facility] has neither reviewed nor approved the modified material. All other unmodified content is copyright [employer]. Please see references footnoted in the original [employer] edition 2016 Admission Criteria Met: Yes
[2017-03-12 16:24] VITALS: BP 139/92
== END 2017-03-12 16:15 | disposition short-term general hospital (02) | DRG 282 ==
LOC: ED 20:08 → 4A 03-12 00:49
PROVIDERS: ADMIT Internal Medicine; ATTEND Hospitalist
PROC: 4A023N7 Measurement of Cardiac Sampling and Pressure, Left Heart, Percutaneous Approach (ICD-10-PCS; principal; 2017-03-12)
PROC: B2111ZZ Fluoroscopy of Multiple Coronary Arteries using Low Osmolar Contrast (ICD-10-PCS; 2017-03-12)
PROC: B2151ZZ Fluoroscopy of Left Heart using Low Osmolar Contrast (ICD-10-PCS; 2017-03-12)
DX: I21.4 Non-ST elevation (NSTEMI) myocardial infarction (principal); I10 Essential (primary) hypertension; F12.90 Cannabis use, unspecified, uncomplicated; I25.110 Atherosclerotic heart disease of native coronary artery with unstable angina pectoris; D69.6 Thrombocytopenia, unspecified; J45.909 Unspecified asthma, uncomplicated; E78.5 Hyperlipidemia, unspecified; Z79.82 Long term (current) use of aspirin; Z79.899 Other long term (current) drug therapy; Z88.8 Allergy status to other drugs, medicaments and biological substances; Z95.5 Presence of coronary angioplasty implant and graft; Z82.49 Family history of ischemic heart disease and other diseases of the circulatory system; Z72.89 Other problems related to lifestyle
CPT/HCPCS: 36415; 71010; 71275; 74174; 80053; 80061; 83880; 84484; 85014; 85018; 85025; 85049; 85610; 85730; 93005; 93010; 93458; 96365; 96366; 96368; 96374; 96375; 96376; C1887; C1894; J1170; J1644; J2250; J2270; J2405; J2765; J3010; J7040; Q9967